=== PATIENT | male | born 1975 | race Caucasian/White ===

== ENCOUNTER 2022-06-23 07:11 | Day surgery (SDC) | payer BC ==
[2022-06-22 09:48] VITALS: BMI 30.5
[2022-06-23] MEDS ORDERED: Lidocaine 1% PF 5 ML VIAL ONE (09:00)
[2022-06-23] MEDS ORDERED: PROPOFOL 40 ML ONE (09:00)
[2022-06-23] MEDS ORDERED: PROPOFOL 20 ML ONE ×2 (09:24→09:36)
[2022-06-23] MEDS ORDERED: Midazolam HCl 2 mg/2 ml Vial ONE (09:42)
[2022-06-23] MEDS ORDERED: Dexamethasone 4 mg/ml Vial ONE (10:11)
[2022-06-23] MEDS ORDERED: Ondansetron PF 4 MG/2 ML Vial ONE (10:11)
== END 2022-06-23 12:05 | disposition home or self-care (01) ==
LOC: CSHSDC 07:11
PROVIDERS: ATTEND Internal Medicine Gastroenterology
DX: Z12.11 Encounter for screening for malignant neoplasm of colon (principal); K63.5 Polyp of colon; K22.2 Esophageal obstruction; K21.00 Gastro-esophageal reflux disease with esophagitis, without bleeding; K64.8 Other hemorrhoids; K25.9 Gastric ulcer, unspecified as acute or chronic, without hemorrhage or perforation; K44.9 Diaphragmatic hernia without obstruction or gangrene; K29.70 Gastritis, unspecified, without bleeding; K57.30 Diverticulosis of large intestine without perforation or abscess without bleeding; E78.5 Hyperlipidemia, unspecified; R13.10 Dysphagia, unspecified; I10 Essential (primary) hypertension; Z86.16 Personal history of COVID-19
CPT/HCPCS: 71045; 88305; J1100; J2250; J2405; J2704